=== PATIENT | female | born 1980 | race Two or more races ===

== ENCOUNTER 2017-07-14 13:14 | Emergency (ER) | payer BC, OTHER ==
[~2017-07-14] VITALS: Ht 167.6 cm; Wt 81.6 kg
[2017-07-14] MEDS ORDERED: OXYMETAZOLINE HCL NASAL SPRAY 30 ML BOTTLE NS ONE ×2 (13:26→15:00)
--- NOTE | 2017-07-14 13:29 | NUR ---
[id number] FROM HOME FOR LEFT NARES NOSEBLEED FOR 30 MIN NOW. PT SAID SHE HAD ANOTHER EPISODE OF NOSEBLEED AT 0830 AM TODAY AND SHE WENT TO URGENT CARE, AND THEY MANAGED TO STOP IT. PT HAD A PROCEDURE OF TURBINATEEXCISION TO HER NOSE WITH DR. TORREZ 1 MONTH AGO. DENIES PAIN BUT FEELING DIZZY AT THIS TIME. WILL CONT TO MONITOR
--- NOTE | 2017-07-14 13:30 | NUR ---
VERBAL ORDER FROM [facility]. AFRIN SPRAY.
[2017-07-14] MEDS ORDERED: ONDANSETRON HCL/PF 4 MG/2 ML VIAL ONE (13:53)
[2017-07-14 13:57] LABS: EOSINOPHILS % (AUTO) 4.7 % (0.0-6.0); HEMATOCRIT 36 % (33-45); LYMPHOCYTES # (AUTO) 0.9 /CMM (0.8-4.8); LYMPHOCYTES % (AUTO) 36.3 % (20.0-44.0); MEAN CORPUSCULAR HGB CONC 36 g/dl (31.0-36.0); MEAN CORPUSCULAR VOLUME 97 fL (82-100); MONOCYTES # (AUTO) 0.4 /CMM (0.1-1.30); MONOCYTES % (AUTO) 15.7 % (2.0-12.0); NEUTROPHILS # (AUTO) 1.1 /CMM (1.8-8.9); NEUTROPHILS % (AUTO) 41.3 % (43.0-81.0); PLATELET COUNT (AUTO) 293 /CMM (150-450); RED BLOOD CELL COUNT(AUTO) 3.71 MIL/uL (4.0-5.2); WHITE BLOOD COUNT (AUTO) 2.5 K/uL (4.3-11.0)
[2017-07-14] MEDS ORDERED: ONDANSETRON HCL/PF 4 MG/2 ML VIAL IVP ONE (14:00)
[2017-07-14] MEDS ORDERED: IV NS 0.9% 1,000 ML BAG IV ONE (14:00)
[2017-07-14] MEDS ORDERED: MORPHINE SULFATE INJ 2 MG/ML DISP.SYRIN IV ONE (14:00)
--- NOTE | 2017-07-14 14:05 | NUR ---
ASSUMED CARE OF PT. PT HAS RHINO ROCKET IN LEFT NARE. SMALL AMOUNT OF IVAN BLOOD DRIPPING FROM RT NARE. PT IS DIAPHORETIC AND WEAK. VSS. PT'S PULSE OX IS 100% ON RA. PT IS C/O LEFT NARE PAIN. PT HAD A PROCEDURE [address] TORREZ, POLICY OFFICER/ENT. PT'S IS AT THE BEDSIDE. PT IS C/O HAVING TO GO TO THE BATHROOM.
[2017-07-14 14:07] LABS: CALCIUM, SERUM 8.7 mg/dL (8.5-10.1)
--- NOTE | 2017-07-14 14:08 | NUR ---
PT IS TOO WEAK FOR THE BEDSIDE COMMODE. PT PLACED ON A BEDPAN.
[2017-07-14] MEDS ORDERED: ACETAMINOPHEN ES 500 MG TABLET ONE (14:41)
[2017-07-14] MEDS ORDERED: ACETAMINOPHEN 325 MG TABLET PO ONE (15:00)
[2017-07-14] MEDS ORDERED: MORPHINE SULFATE INJ 4 MG/ML DISP.SYRIN ONE (15:11)
--- NOTE | 2017-07-14 15:50 | NUR ---
Patient discharged to home in stable condition. Written and verbal after care instructions given. Patient verbalizes understanding of instruction. IV removed. Catheter intact and site benign. Pressure and 4x4 applied to site. No bleeding noted. PT TAKEN VIA WC TO DR. TORREZ'S OFFICE. VSS. COPY OF LABS WITH PT.
[2017-07-14 15:54] VITALS: BP 140/101
[2017-07-14 16:14] LABS: BAND % (MANUAL) 2 % (0.0-5.0); BASOPHILS % (MANUAL) 0 % (0.0-2.0); EOSINOPHILS % (MANUAL) 6 % (0-4); LYMPHOCYTES % (MANUAL) 34 % (16-48); MONOCYTES % (MANUAL) 9 % (0-11.0); NEUTROPHILS % (MANUAL) 49 (42-76)
== END 2017-07-14 15:55 | disposition home or self-care (01) ==
LOC: ER 13:17
DX: R04.0 Epistaxis (principal); J95.831 Postprocedural hemorrhage of a respiratory system organ or structure following other procedure; I10 Essential (primary) hypertension
CPT/HCPCS: 30901; 36415; 80048; 85025; 85730; 96361; 96374; 96375; 99291; A4606; J2270; J2405; J7040 ×2; Z7610